=== PATIENT | male | born 1985 ===

== ENCOUNTER 2017-05-10 09:36 | Emergency (ER) | payer OTHER ==
[~2017-05-10] VITALS: Ht 152.4 cm; Wt 54.4 kg
[2017-05-10] MEDS ORDERED: IBUPROFEN800 MG PO (15:06)
== END 2017-05-10 16:10 | disposition home or self-care (01) ==
LOC: ER 09:36
DX: M94.0 Chondrocostal junction syndrome [Tietze] (principal)